=== PATIENT | male | born 1960 | race Asian ===

== ENCOUNTER 2018-02-08 12:33 | Outpatient (CLI) | payer BC | END 2018-02-08 20:46 | disposition home or self-care (01) | LOC: SRD 12:33 | PROVIDERS: ATTEND Family Medicine | DX: M47.892 Other spondylosis, cervical region (principal); M19.012 Primary osteoarthritis, left shoulder; M19.011 Primary osteoarthritis, right shoulder; M25.521 Pain in right elbow; R06.02 Shortness of breath; R05 Cough; F17.200 Nicotine dependence, unspecified, uncomplicated | CPT/HCPCS: 71046-TC; 72050-TC; 73030 ==